=== PATIENT | female | born 1970 | race Hispanic/Latino ===

== ENCOUNTER 2017-03-29 20:03 | Observation (INO) | payer SELFPAY ==
[2017-03-29 20:25] LABS: Bilirubin Negative (Negative); Blood, Urine Negative (Negative); Glucose, Urine (Dipstick) Negative (Negative); Ketone, Urine Negative (Negative); Nitrite Negative (Negative); Protein, Urine (Dipstick) Negative (Neg-Trace)
[2017-03-29 20:30] LABS: Bacteria/HPF 4+ HPF (None Seen); Hyaline Casts/LPF 0-3 HYALINE CAST LPF (0-3 Hyaline); WBC/HPF 21-50 HPF (0-3)
[2017-03-29 20:32] LABS: RBC/HPF None Seen HPF (0-3)
[2017-03-29 22:43] LABS: #Basophils 0.1 thou/uL (0.0-0.2); #Eosinphils 0.1 thou/uL (0.0-0.7); #Lymphocytes 2.1 thou/uL (1.20-3.40); #Monocytes 0.7 thou/uL (0.11-0.59); #Neutrophils 9.6 thou/uL (1.40-6.50); %Basophils 0.4 % (0.0-1.0); %Lymphocytes 16.7 % (21.0-51.0); %Monocytes 5.6 % (0.0-10.0); Hematocrit 44.6 % (36.0-47.0); Mean Platelet Volume 6.6 fL (7.4-10.4); Red Blood Cell (RBC) Count 5.05 mill/uL (4.20-5.40); White Blood Cell (WBC) Count 12.6 thou/uL (4.8-10.8)
[2017-03-29] MEDS ORDERED: Ketorolac Tromethamine 30 MG/ML VIAL ONE (23:00)
[2017-03-29] MEDS ORDERED: Ondansetron HCl/PF 4 MG/2 ML Vial ONE (23:00)
[2017-03-29 23:02] LABS: ALT (SGPT) 94 U/L (8-55); AST (SGOT) 178 U/L (5-34); Alkaline Phosphatase 124 U/L (40-150); Anion Gap 15 mmol/L (10-20); BUN (Urea Nitrogen) 11 mg/dL (7.0-18.7); Bilirubin, Total 1.2 mg/dL (0.2-1.2); Calc. Creatinine Clearance 0 mL/min (70-130); Calcium 9.6 mg/dL (7.8-10.44); Carbon Dioxide 25 mmol/L (22-29); Chloride 102 mmol/L (98-107); Estimated GFR-MDRD 88; Globulin 3.8 g/dL (2.4-3.5); Lipase 24 U/L (8-78)
--- NOTE | 2017-03-29 23:38 | CT ---
NONCONTRAST ABDOMEN AND PELVIC CT RENAL CALCULUS PROTOCOL 03/29/17 INDICATION: Abdominal pain. Patchy opacities of the lung bases are present consistent with volume loss. There is moderate disten tion of the gallbladder with subtle layering increased density and slight pericholecystic fat strand ing. Punctate densities are present at the gallbladder fundus as well. There is low attenuation of t he hepatic parenchyma indicating hepatic steatosis. Colonic diverticulosis is present. There is mild obstructing left nephrolithiasis. A punctate nonobstructing right nephrolithiasis pres ent. There is moderate distention of the unopacified urinary bladder. Slight heterogeneity of the ut erus is nonspecific and incompletely assessed on the basis of this exam. Evaluation otherwise limite d by noncontrast technique. IMPRESSION: 1. Abnormalities of the gallbladder, as discussed above. Recommend dedicated gallbladder ultras ound to further evaluate. 2. Bilateral nonobstructing nephrolithiasis. POS: [facility]
[2017-03-30] MEDS ORDERED: MEROPENEM 1 GM/50 ML 1 GM in Premix Bag 1 BAG IVPB SCH (01:00)
[2017-03-30] MEDS ORDERED: MORPHINE 10 MG/ML SYRINGE IV PRN (01:55)
[2017-03-30] MEDS ORDERED: Ondansetron HCl/PF 4 MG/2 ML Vial IVP PRN (01:56)
[2017-03-30] MEDS ORDERED: Ondansetron ODT 4 MG TAB SL PRN (01:56)
[2017-03-30] MEDS ORDERED: Sodium Chloride 0.9% 1,000 ML IV SCH (02:00)
[2017-03-30] MEDS ORDERED: Lactated Ringer's 1,000 ML IV SCH (07:15)
--- NOTE | 2017-03-30 07:38 | ULT ---
RIGHT UPPER QUADRANT ULTRASOUND: Date: 03/30/17 HISTORY: 46-year-old female with right flank pain with fever. COMPARISON: Prior chest CT with abnormal finding. FINDINGS: Multiple gallstones are noted within the gallbladder, dependent position. No significant gallbladder wall thickening or pericholecystic fluid. Common bile duct is 0.4 cm. Increased liver echogenicity, evidence for some fatty change. Visualized pancreas and right kidney are unremarkable. IMPRESSION: Multiple cholelithiasis. Fatty changes of the liver. No significant ductal dilatation. POS: [facility]
[2017-03-30] MEDS ORDERED: Scopolamine 1.5 mg/72 hour Patch TD SCH (09:00)
[2017-03-30] MEDS ORDERED: Bupivacaine/Epinephrine 0.25% 30 ML VIAL ONE (10:07)
[2017-03-30] MEDS ORDERED: Ketorolac Tromethamine 30 MG/ML VIAL ONE (10:29)
[2017-03-30] MEDS ORDERED: Scopolamine 1.5 mg/72 hour Patch ONE ×2 (10:31)
[2017-03-30] MEDS ORDERED: Fentanyl 100 MCG/2 ML VIAL ONE ×2 (10:48→11:22)
[2017-03-30] MEDS ORDERED: Propofol 200 MG/20 ML VIAL ONE (11:00)
[2017-03-30] MEDS ORDERED: Lidocaine 1% PF 5 ML VIAL ONE (11:00)
[2017-03-30] MEDS ORDERED: Glycopyrrolate 0.2 MG/ML 5 ML SYRINGE ONE (11:00)
[2017-03-30] MEDS ORDERED: Ondansetron HCl/PF 4 MG/2 ML Vial ONE (11:00)
[2017-03-30] MEDS ORDERED: Dexamethasone 20 MG/5 ML VIAL ONE (11:00)
--- NOTE | 2017-03-30 11:20 | HP ---
ROOM: 320. HISTORY OF PRESENT ILLNESS: Melina Dodge is a 46-year-old Malawian-speaking only female, who is accompanied by her brother, who speaks very good Khmer. The patient has been, for the past month , experiencing epigastric right upper quadrant pain with back radiation. She has suffered occasiona l nausea and vomiting. She presented to the emergency room last night with acute onset and was admi tted with intravenous antibiotics. She underwent a CAT scan, abdomen and pelvis, 03/29/2017 at 22:5 3 revealing bilateral nonobstructing nephrolithiasis, distention of the gallbladder with sludge vers us stones and pericholecystic stranding and changes suggestive of fatty liver. Colonic diverticulos is was also noted. This is a CT scan stone protocol. The patient subsequently underwent ultrasound of the gallbladder this morning at 07:00 noting multiple cholelithiasis, fatty liver changes, no du ctal dilatation, common bile duct 4 mm. White count 12, hemoglobin 15. Basic metabolic profile was normal. Liver function tests normal except for AST and ALT 178 and 94 respectively. Lipase was no rmal. Alkaline phosphatase normal at 124. ALLERGIES: None. TOBACCO: None. ALCOHOL: None. MEDICATIONS: None routinely. PAST SURGICAL/MEDICAL HISTORY: Noncontributory. SOCIAL HISTORY: Patient does have children. REVIEW OF SYSTEMS: A 10-point noncontributory. No cardiac history. No GI history otherwise. PHYSICAL EXAMINATION: VITAL SIGNS: Weight 142 pounds, temperature 97.4 degrees, 61 heart rate, 20 respiratory rate, blood pressure 119/76. HEAD, EYES, EARS, NOSE, AND THROAT: Unremarkable. Sclerae nonicteric. SKIN: Nonjaundiced. LUNGS: Clear to auscultation. CARDIAC: Regular rate and rhythm without murmur or gallop. ABDOMEN: Soft, tenderness in the right upper quadrant and epigastrium with mild guarding. EXTREMITIES: Unremarkable, positive Rivas's sign. NEUROLOGICAL: Intact. No focal deficits. LYMPHATICS: No lymphadenopathy neck, axillae, or groins. ASSESSMENT AND PLAN: Cholecystitis, cholelithiasis. She has acute cholecystitis. She has received intravenous antibiotics. They have given her Toradol and Ofirmev IV. We will plan laparoscopic vi reyna cholecystectomy. Risk of infection, bleeding, visceral and biliary injury, and open procedure w ere discussed. Questions answered. Expect the patient to be discharged home postoperatively.
[2017-03-30] MEDS ORDERED: Acetaminophen 500 MG TAB PO PRN (11:21)
[2017-03-30] MEDS ORDERED: Ibuprofen 600 MG TAB PO PRN (11:21)
--- NOTE | 2017-03-30 11:45 | DIS ---
Melina Dodge is a 46-year-old Marshallese-speaking only female more than 1-month history of intermi ttent right upper epigastric pain, back radiation, with postprandial nausea and vomiting. She prese nted to the emergency room with a particularly severe episode. CAT scan suggesting pericholecystic stranding and gallbladder lucencies and fatty liver, diverticulosis, otherwise normal CAT scan. Und erwent ultrasound demonstrating cholelithiasis, cholecystitis, 4-mm bile duct. Transaminase was shivani vated. Bilirubin and alkaline phosphatase were normal. Lipase was normal. She received intravenou s antibiotics, fluids overnight, was taken to the operating room for laparoscopic video cholecystect jes and postoperatively convalesced, tolerated her diet, and was discharged home. She was sent home with onow-[id number] Tylenol and Motrin for pain and if refractory Ultram #22 refills. Follow up in my office in 2-3 weeks. Diet and activity as tolerated. Bathe and shower as indicated , no dietary restrictions. Encouraged to be ambulatory and up in a chair.
[2017-03-30] MEDS ORDERED: Acetaminophen 1,000 MG in Premix Bag 1 BAG IVPB SCH (12:00)
[2017-03-30] MEDS ORDERED: Piperacillin/Tazobactam 3.375 GM, Admixture Fee 1 EACH in Sodium Chloride 0.9% 100 ML IVPB SCH (12:00)
[2017-03-30] MEDS ORDERED: Ketorolac Tromethamine 30 MG/ML VIAL IVP SCH (12:00)
--- NOTE | 2017-03-30 13:16 | OP ---
DATE OF PROCEDURE: 03/30/2017 PREOPERATIVE DIAGNOSES: Acute cholecystitis, cholelithiasis, fatty liver. POSTOPERATIVE DIAGNOSES: Acute cholecystitis, cholelithiasis, fatty liver. PROCEDURE: Laparoscopic video cholecystectomy. SURGEON: Catrachito Wild M.D. ANESTHESIA: General. Local of 0.25% Marcaine with epinephrine, 30 mL, mixed with 2% Xylocaine, 10 mL. SPECIMENS: Gallbladder and gallstones. ESTIMATED BLOOD LOSS: 10 mL. BLOOD TRANSFUSED: None. PROCEDURE IN DETAIL: The patient taken to the operating room where under general anesthesia, abdome n was prepared with chloraprep, draped in routine fashion. Local anesthetic mixture infiltrated int o skin and subcutaneous tissue about each port site. Infraumbilical incision made and pneumoperiton eum to 15 mmHg obtained with the Veress needle, replacing it with a 5 port laparoscope inserted. Ri ght subxiphoid incision made and 11 port placed. Right subcostal incision made mid clavicular anter ior axillary lines and 5 ports placed. Liver appeared to be normal. Fundus of the gallbladder gras ped and reflected cephalad. Gallbladder wall was thickened and edematous. Infundibulum grasped and reflected laterally. Cystic artery and duct dissected free. Critical view obtained with two-third s dissection cystic plate. Cystic artery and duct doubly clipped proximally, divided, and gallbladd er dissected free from the liver bed obtaining good hemostasis prior to division of final peritoneal attachments. Gallbladder and contents removed and submitted to Pathology. Hemostasis gained with cautery. FloSeal and Surgicel applied. Derrick hepatis. Good hemostasis noted. Irrigant and pneumo peritoneum evacuated. All instruments removed and all skin incisions approximated with interrupted subdermal 4-0 Monocryl and DermaGlue applied.
[2017-03-30 15:33] VITALS: BP 151/74; TEMP 98.2
== END 2017-03-30 17:38 | disposition home or self-care (01) ==
LOC: ERS 20:03 → 3SE 03-30 00:15 → ERS 03-30 01:30
PROVIDERS: ADMIT Specialist; ATTEND Specialist
PROC: 0FT44ZZ Resection of Gallbladder, Percutaneous Endoscopic Approach (ICD-10-PCS; principal; 2017-03-30)
DX: K80.10 Calculus of gallbladder with chronic cholecystitis without obstruction (principal); K76.0 Fatty (change of) liver, not elsewhere classified
CPT/HCPCS: 74176; 76705; 80053; 81003; 81015; 83690; 85025; 88304; 96361; 96365; 96374; 96375; G0378; J0131; J1100; J1885; J2001; J2270; J2405; J2543; J2704; J3010; J7050

== ENCOUNTER 2018-07-20 16:02 | Emergency (ER) | payer SELFPAY ==
[2018-07-20] MEDS ORDERED: Ketorolac Tromethamine 30 MG/ML VIAL ONE (17:00)
== END 2018-07-20 17:23 | disposition home or self-care (01) ==
LOC: ERS 16:02
DX: K02.9 Dental caries, unspecified (principal); F41.9 Anxiety disorder, unspecified
CPT/HCPCS: 96372; J1885